=== PATIENT | female | born 1990 | race African-American/Black ===

== ENCOUNTER 2017-07-04 20:47 | Emergency (ER) | payer MEDICAID ==
[~2017-07-04] VITALS: Ht 172.7 cm; Wt 96.0 kg
[2017-07-04] MEDS ORDERED: LORAZEPAM 2MG/ML CPJ IV ONE (21:05)
[2017-07-04] MEDS ORDERED: LORAZEPAM 2MG/ML CPJ ONE (21:08)
[2017-07-04] MEDS ORDERED: SODIUM CHLORIDE 0.9% 1,000 ML IV ONE (21:09)
[2017-07-04] MEDS ORDERED: LEVETIRACETAM 500MG PREMIX 100 ML IV ONE (21:15)
[2017-07-04] MEDS ORDERED: ACETAMINOPHEN 325MG TABLET PO ONE (21:15)
[2017-07-04 21:54] LABS: BASOPHILS % 0.7 % (0.0-2.0); EOSINOPHILS % 3.6 % (0.0-5.0); HEMATOCRIT. 35.3 % (36.0-48.0); LYMPHOCYTES % 36.6 % (20.0-50.0); MEAN CORPUSCULAR VOLUME 94.1 fL (81.0-99.0); MEAN PLATELET VOLUME 9.5 fl (7.4-10.4); MONOCYTES % 10.7 % (2.0-8.0); NEUTROPHILS % 48.4 % (40.0-76.0); PLATELET 200 x1000/uL (130-400); RED BLOOD CELL COUNT 3.75 mill/uL (4.2-5.4); RED CELL DISTRIBUTION WIDTH 12.6 % (11.6-14.6)
[2017-07-04 22:00] LABS: CHLORIDE 105 mEq/L (98-107); PROTHROMBIN TIME 10.7 sec (9.4-11.6)
[2017-07-04 22:04] LABS: AMMONIA 12 uMol/L (<32); ETHANOL BLOOD < 10 mg/dL
[2017-07-04 22:08] LABS: CREATINE KINASE 142 IU/L (26-192)
[2017-07-04 22:12] LABS: HCG SCREEN NEGATIVE
[2017-07-05 00:14] VITALS: BP 139/92
[2017-07-06] MEDS ORDERED: LEVE500T19 PO (12:10)
[2017-07-06] MEDS ORDERED: IBUP-2030 PO (12:10)
== END 2017-07-05 01:00 | disposition home or self-care (01) ==
LOC: ER 21:05
DX: R56.9 Unspecified convulsions (principal); R41.82 Altered mental status, unspecified; R51 Headache
CPT/HCPCS: 36415; 70450; 71045; 80053; 82140; 82550; 83605; 83690; 84443; 84703; 85025; 85610; 93005; 96365; 96375; 99285; G0482; J1953; J2060; J7030; Z7610

== ENCOUNTER 2021-06-22 04:04 | Emergency (ER) | payer MEDICAID, OTHER ==
[~2021-06-22] VITALS: Ht 172.7 cm; Wt 106.0 kg
[~2021-06-22 04:04] MED LIST: IBUP-2030 PO; LEVE500T19 PO
[2021-06-22 05:50] LABS: BASOPHILS % 0.4 % (0.0-2.0); EOSINOPHILS % 0.7 % (0.0-5.0); HEMATOCRIT. 39.9 % (36.0-48.0); HEMOGLOBIN. 13.1 g/dL (12.0-16.0); LYMPHOCYTES % 23.2 % (20.0-50.0); MEAN CORPUSCULAR HEMOGLOBIN 31.5 pg (28.0-32.0); MEAN CORPUSCULAR VOLUME 95.8 fL (81.0-99.0); MEAN PLATELET VOLUME 9.3 fl (7.4-10.4); MONOCYTES % 11.1 % (2.0-8.0); NEUTROPHILS % 64.6 % (40.0-76.0); PLATELET 224 x1000/uL (130-400); RED BLOOD CELL COUNT 4.16 mill/uL (4.2-5.4); RED CELL DISTRIBUTION WIDTH 13.3 % (11.6-14.6)
[2021-06-22 06:00] LABS: HCG SCREEN NEGATIVE
[2021-06-22 06:03] LABS: CHLORIDE 103 mEq/L (98-107)
[2021-06-22 07:24] VITALS: BP 139/96
[2021-06-22] MEDS ORDERED: MORPHINE SULFATE 4 MG/ML CPJ (NOT FOR IM USE) IV STA (07:24)
[2021-06-22] MEDS ORDERED: ONDANSETRON HCL 4MG/2ML INJ IV STA (07:24)
[2021-06-22] MEDS ORDERED: SODIUM CHLORIDE 0.9% 1,000 ML IV ONE ×2 (07:30→10:30)
[2021-06-22 07:45] LABS: CLARITY URINE CLEAR (CLEAR); COLOR URINE YELLOW (YELLOW); KETONES URINE NEGATIVE (NEGATIVE); LEUKOCYTE ESTERASE URINE NEGATIVE (NEGATIVE); NITRITE URINE NEGATIVE (NEGATIVE); OCCULT BLOOD URINE NEGATIVE (NEGATIVE); PROTEIN URINE NEGATIVE (NEGATIVE); SPECIFIC GRAVITY URINE 1.015 (1.005-1.030); UROBILINOGEN URINE 0.2 E.U./dL (0.2-1.0)
[2021-06-22] MEDS ORDERED: LORAZEPAM 2MG/ML CPJ IV ONE (09:15)
[2021-06-22] MEDS ORDERED: IBUP-2030 MT (11:34)
[2021-06-22] MEDS ORDERED: ONDA4TAB11 PO (11:34)
== END 2021-06-22 11:53 | disposition home or self-care (01) ==
LOC: ER 04:04
DX: R10.2 Pelvic and perineal pain (principal); D25.9 Leiomyoma of uterus, unspecified; R11.0 Nausea; J45.909 Unspecified asthma, uncomplicated; G43.909 Migraine, unspecified, not intractable, without status migrainosus; Z79.899 Other long term (current) drug therapy
CPT/HCPCS: 36415; 74176; 76830; 76856; 80053; 81003; 83690; 84703; 85025; 96361; 96374; 96375; 99285; J2060; J2270; J2405; J7030

== ENCOUNTER 2021-07-04 22:49 | Emergency (ER) | payer MEDICAID, OTHER ==
[~2021-07-04] VITALS: Ht 172.7 cm; Wt 106.0 kg
[~2021-07-04 22:49] MED LIST changes: +IBUP-2030 MT; +ONDA4TAB11 PO
[2021-07-04 22:52] VITALS: BP 122/86
== END 2021-07-05 00:10 | disposition left against medical advice (07) ==
LOC: ER 22:49
DX: Z53.21 Procedure and treatment not carried out due to patient leaving prior to being seen by health care provider (principal); J45.909 Unspecified asthma, uncomplicated; R56.9 Unspecified convulsions; G43.909 Migraine, unspecified, not intractable, without status migrainosus

== ENCOUNTER 2021-11-12 07:53 | Emergency (ER) | payer OTHER ==
[~2021-11-12] VITALS: Ht 172.7 cm; Wt 111.0 kg
[2021-11-12 08:15] VITALS: BP 140/96
[2021-11-12] MEDS ORDERED: ONDANSETRON 4MG ODT PO ONE (08:45)
[2021-11-12] MEDS ORDERED: IBUPROFEN 400MG TABLET PO ONE (08:45)
[2021-11-12 09:11] LABS: BASOPHILS % 0.7 % (0.0-2.0); EOSINOPHILS % 3.7 % (0.0-5.0); HEMATOCRIT. 37.7 % (36.0-48.0); HEMOGLOBIN. 13.2 g/dL (12.0-16.0); LYMPHOCYTES % 37.6 % (20.0-50.0); MEAN CORPUSCULAR VOLUME 94.2 fL (81.0-99.0); MONOCYTES % 11.4 % (2.0-8.0); NEUTROPHILS % 46.6 % (40.0-76.0); PLATELET 198 x1000/uL (130-400); RED BLOOD CELL COUNT 4.01 mill/uL (4.2-5.4); RED CELL DISTRIBUTION WIDTH 12.7 % (11.6-14.6)
[2021-11-12 09:15] LABS: CHLORIDE 105 mEq/L (98-107)
[2021-11-12 12:32] LABS: CLARITY URINE CLOUDY (CLEAR); COLOR URINE RED (YELLOW); KETONES URINE TRACE (NEGATIVE); PH URINE 6.5 (4.5-8.0); PROTEIN URINE 2+ (NEGATIVE); SPECIFIC GRAVITY URINE 1.015 (1.005-1.030)
[2021-11-12 12:33] LABS: LEUKOCYTE ESTERASE URINE TRACE (NEGATIVE); NITRITE URINE NEGATIVE (NEGATIVE); OCCULT BLOOD URINE 4+ (NEGATIVE); UROBILINOGEN URINE 0.2 E.U./dL (0.2-1.0)
== END 2021-11-12 12:55 | disposition home or self-care (01) ==
LOC: ER 08:01
DX: N93.9 Abnormal uterine and vaginal bleeding, unspecified (principal); D25.9 Leiomyoma of uterus, unspecified; G40.909 Epilepsy, unspecified, not intractable, without status epilepticus; J45.909 Unspecified asthma, uncomplicated; G43.909 Migraine, unspecified, not intractable, without status migrainosus; Z91.013 Allergy to seafood
CPT/HCPCS: 36415; 76830; 76856; 80053; 81003; 81025; 84702; 85025; 86850; 86900; 86901; 99284; Q0162

== ENCOUNTER 2021-11-18 12:53 | Emergency (ER) | payer OTHER ==
[~2021-11-18] VITALS: Ht 172.7 cm; Wt 108.0 kg
[2021-11-18 12:56] VITALS: BP 137/86
== END 2021-11-18 19:30 | disposition left against medical advice (07) ==
LOC: ER 12:53
DX: Z53.21 Procedure and treatment not carried out due to patient leaving prior to being seen by health care provider (principal)